=== PATIENT | male | born 1980 | race Caucasian/White ===

== ENCOUNTER 2022-02-23 15:27 | Emergency (ER) | payer BC, SELFPAY ==
[2022-02-23 16:06] VITALS: BP 148/114; PULSE 77; RESP 16; TEMP 36.6; O2SAT 100; BMI 35.4
--- NOTE | 2022-02-23 16:10 | XRR_ITS ---
PROCEDURE INFORMATION: Exam: XR Right Shoulder Exam date and time: 02/23/2022 4:14 PM Age: 41 years old Clinical indication: Injury or trauma; Blunt trauma (contusions or hematomas); Injury details: History--fell over a trailer hitch, caught fall with right shoulder and elbow; Additional info: Trauma to right shoulder possible dislocation TECHNIQUE: Imaging protocol: Radiologic exam of the Right shoulder. Views: 2 or more views. COMPARISON: No relevant prior studies available. FINDINGS: Bones/joints: There is a curvilinear os ossific fragment along the inferior glenoid consistent with osseous Bankart injury measuring 1.4 cm. The rest of the osseous structures are intact. No dislocation. Soft tissues: Normal. XR/XR shoulder RT min 2V* [id number] IMPRESSION: Sequela of prior dislocation injury with osseous Bankart fragment measuring 1.4 cm along the inferior glenoid.
--- NOTE | 2022-02-23 16:11 | XRR_ITS ---
PROCEDURE INFORMATION: Exam: XR Right Elbow Exam date and time: 02/23/2022 4:18 PM Age: 41 years old Clinical indication: Injury or trauma; Blunt trauma (contusions or hematomas); Injury details: History--fell over a trailer hitch, caught fall with right shoulder and elbow; Additional info: Truma to right elbow. TECHNIQUE: Imaging protocol: Radiologic exam of the Right elbow. Views: 3 or more views. COMPARISON: CR XR shoulder RT min 2V* [id number] 02/23/2022 4:14 PM FINDINGS: Bones/joints: Osseous structures are intact. Negative for fracture. Moderate sized enthesophyte noted at the triceps insertion. Soft tissues: Normal. XR/XR elbow RT min 3V* [id number] IMPRESSION: No acute findings.
[2022-02-23 16:36] VITALS: BP 168/112; PULSE 79; RESP 19; O2SAT 98
--- NOTE | 2022-02-23 17:15 | W.ED.EXTPRO ---
Documented by User: OMI Ferrer 02/23/22 17:43 HPI - Extremity Problem General: Chief complaint: Extremity Injury, Upper Stated complaint: right arm pain Time Seen by Provider: 02/23/22 16:45 History of Present Illness: Patient is a 41-year-old male who comes to the ED with right shoulder injury. Injury occurred just prior to arrival. Patient says he tripped and fell outside and landed on his right shoulder. After fall patient felt pain in his right shoulder and feels like his shoulder was dislocated. He then got in the vehicle and his mother drove him to the emergency department. While in route they hit a bump causing patient's right shoulder to pop back into place. His pain was better by the time he arrived here to the ED. Associated symptoms: Deny chest pain, fever(s) or rash Review of Systems Const: Denies: fever(s), chills or fatigue Eyes: Denies: change in vision or eye discomfort ENMT: Denies: throat pain, odynophagia, nasal discharge or nasal congestion Card: Denies: chest pain, palpitations, edema, swelling of feet/ankles, dyspnea on exertion or orthopnea Resp: Denies: dyspnea, productive cough or non-productive cough GI: Denies: abdominal pain, nausea, vomiting, diarrhea, constipation or hematochezia : Denies: flank pain, difficulty urinating, dysuria or hematuria Musc: Reports: extremity pain (right shoulder); Denies: neck pain, back pain or extremity swelling Skin/Breast: Denies: rash or new lesions Neuro: Denies: headache(s), numbness in extremities or weakness in extremities [facility] ED PFSH: Medical History No pertinent family history Surgical History No pertinent past surgical history Physical Exam Const: COMMON NORMALS: patient oriented x3, healthy appearing and alert GENERAL APPEARANCE: cooperative HENMT: COMMON NORMALS: normocephalic HEAD & SCALP: normocephalic MOUTH: Normal oral and palatal mucosa present THROAT: posterior oropharynx normal and uvula midline Neck/C-Spine: COMMON NORMALS: supple GENERAL: Yes normal visual inspection Resp: COMMON NORMALS: normal respiratory effort, No retractions, No use of accessory muscles and clear to auscultation bilaterally AUSCULTATION: clear to auscultation bilaterally Cardio: COMMON NORMALS: regular rate, regular rhythm, S1 normal heart sound present, S2 normal heart sound present, No gallops present (Cardio), No clicks present (Cardio), No murmurs present (Cardio) and Peripheral pulses 2+ throughout RATE: regular rate RHYTHM: regular rhythm HEART SOUNDS: S1 normal heart sound present and S2 normal heart sound present PERIPHERAL PULSES: Peripheral pulses 2+ throughout GI: COMMON NORMALS: Normal to inspection, nondistended, normoactive bowel sounds present, Soft to palpation, non-tender and no masses PALPATION: Yes Soft to palpation : COMMON NORMALS: Yes no CVA tenderness BLADDER/KIDNEY EXAM: Yes no CVA tenderness Back/Pelvis: COMMON NORMALS: no CVA tenderness Extremity: NARRATIVE EXTREMITY EXAM: Right shoulder?no visible deformity noted. Tenderness palpation over AC joint region. Limited range of motion due to pain. neurovascular intact. Neuro: COMMON NORMALS: patient oriented x3 SENSORIUM/ORIENTATION: Yes alert GAIT: Yes Normal gait present Skin: GENERAL SKIN EXAM: dry skin Course Vital Signs: Vital signs: Vital Signs Temperature 97.9 F 02/23/22 16:06 Pulse Rate 79 02/23/22 16:36 Respiratory Rate 19 H 02/23/22 16:36 Blood Pressure 168/112 02/23/22 16:36 Pulse Oximetry 98 02/23/22 16:36 Oxygen Delivery Me thod 02/23/22 16:36 MDM - Extremity (Nontraumatic) Medical Decision Making Patient is a 41-year-old male comes to the ED with injury to right shoulder. X-ray right shoulder shows a fragment of the inferior glenoid which is consistent with a dislocation injury. Patient was put in a shoulder immobilizer and I placed an order with case management for patient to be referred to Ortho for follow-up and further management of care. He was diagnosed with a right shoulder fracture and was discharged home with a prescription for ibuprofen 800 mg and hydrocodone for pain. Return to ED precautions given. Patient understood and agreed with plan. Lab Data Radiology Impressions Shoulder X-Ray 02/23/22 16:10 IMPRESSION: Sequela of prior dislocation injury with osseous Bankart fragment measuring 1.4 cm along the inferior glenoid. Elbow X-Ray 02/23/22 16:11 IMPRESSION: No acute findings. Discharge Plan Discharge Patient Disposition: Home Clinical Impression: Closed fracture of shoulder Qualifiers: Encounter type: initial encounter Laterality: right Qualified Code(s): S42.91XA - Fracture of right shoulder girdle, part unspecified, initial encounter for closed fracture Condition: Stable Prescriptions: New ibuprofen 800 mg tablet 800 mg PO Q8H PRN (Reason: pain) Qty: 30 0RF Discharge Orders: Discharge ED (Routine); Ordered 02/23/22 Ordered By: Jose De Jesus Capps Discharge Diet: Regular Discharge Activity: Limit activity as instructed Patient Instructions: Opioid Safety Activity Restrictions/Additional Instructions: Follow-up with medical provider as directed. Case management should contact you in the next several days set up an appointment with orthopedic doctor for further evaluation of shoulder fracture. Take medications as prescribed. Keep shoulder in immobilizer until seen by orthopedic doctor. Return to the ER or your medical provider if condition worsens. Please read and understand discharge instructions. Thank you for choosing [facility] for your healthcare needs today. Please realize this is an emergency room and that we are providing you with a medical screening exam and this may not be complete and all inclusive of all the testing and or work up that you may need to determine your ailment or severity of your illness. It is very important that you follow up as instructed or that you return to the Emergency Department should you have concerns or if your condition changes or worsens in any way. Coding Level of Care Code ED Classroom Paraprofessional for Chg Fwd Exam Comprehensive Documented by User: Gal Chanel DO 02/24/22 09:31 HPI - Extremity Problem General: Chief complaint: Extremity Injury, Upper Stated complaint: right arm pain Time Seen by Provider: 02/23/22 16:45 PFSH ED PFSH: Medical History No pertinent family history Surgical History No pertinent past surgical history Course Vital Signs: Vital signs: Vital Signs Temperature 97.9 F 02/23/22 16:06 Pulse Rate 79 02/23/22 16:36 Respiratory Rate 19 H 02/23/22 16:36 Blood Pressure 168/112 02/23/22 16:36 Pulse Oximetry 98 02/23/22 16:36 Oxygen Delivery Me thod 02/23/22 16:36 MDM - Extremity (Nontraumatic) Medical Decision Making Patient is a 41-year-old male comes to the ED with injury to right shoulder. X-ray right shoulder shows a fragment of the inferior glenoid which is consistent with a dislocation injury. Patient was put in a shoulder immobilizer and I placed an order with case management for patient to be referred to Ortho for follow-up and further management of care. He was diagnosed with a right shoulder fracture and was discharged home with a prescription for ibuprofen 800 mg and hydrocodone for pain. Return to ED precautions given. Patient understood and agreed with plan. Chart reviewed and patient discussed with midlevel. Agree with assessment and plan. Lab Data Radiology Impressions Shoulder X-Ray 02/23/22 16:10 IMPRESSION: Sequela of prior dislocation injury with osseous Bankart fragment measuring 1.4 cm along the inferior glenoid. Elbow X-Ray 02/23/22 16:11 IMPRESSION: No acute findings. Discharge Plan Discharge Patient Disposition: Home Clinical Impression: Closed fracture of shoulder Qualifiers: Encounter type: initial encounter Laterality: right Qualified Code(s): S42.91XA - Fracture of right shoulder girdle, part unspecified, initial encounter for closed fracture Condition: Stable Prescriptions: New ibuprofen 800 mg tablet 800 mg PO Q8H PRN (Reason: pain) Qty: 30 0RF Discharge Orders: Discharge ED (Routine); Ordered 02/23/22 Ordered By: Jose De Jesus Capps Discharge Diet: Regular Discharge Activity: Limit activity as instructed Patient Instructions: Opioid Safety Activity Restrictions/Additional Instructions: Follow-up with medical provider as directed. Case management should contact you in the next several days set up an appointment with orthopedic doctor for further evaluation of shoulder fracture. Take medications as prescribed. Keep shoulder in immobilizer until seen by orthopedic doctor. Return to the ER or your medical provider if condition worsens. Please read and understand discharge instructions. Thank you for choosing [facility] for your healthcare needs today. Please realize this is an emergency room and that we are providing you with a medical screening exam and this may not be complete and all inclusive of all the testing and or work up that you may need to determine your ailment or severity of your illness. It is very important that you follow up as instructed or that you return to the Emergency Department should you have concerns or if your condition changes or worsens in any way. Coding Level of Care Code ED Classroom Paraprofessional for Griselda Fwd Exam Comprehensive
--- NOTE | 2022-02-24 20:17 | DCPLANNER ---
Addendum entered by Chantel Mercedes 03/05/22 11:10: Patient had follow up appointment scheduled for 02.26.[address] Garcia at ortho - patient did attend appointment. Original Note: route sales manager had message to schedule a follow up appointment for patient with ortho. route sales manager sent patients information to the front office staff at ortho. Patients information will be printed and reviewed. Clinic will call patient with appointment information.
== END 2022-02-23 17:46 | disposition home or self-care (01) ==
PROVIDERS: Emergency Provider Physician Assistant
DX: S42.141A Displaced fracture of glenoid cavity of scapula, right shoulder, initial encounter for closed fracture (principal); W01.0XXA Fall on same level from slipping, tripping and stumbling without subsequent striking against object, initial encounter
CPT/HCPCS: 29240; 73030; 73080; 99283

== ENCOUNTER 2022-03-09 06:00 | Outpatient (RCR) | payer BC, SELFPAY | END 2022-03-24 23:59 | disposition home or self-care (01) | LOC: TPT 06:00 | PROVIDERS: Referring Provider Orthopaedic Surgery; Visit Provider Orthopaedic Surgery | DX: S43.004D Unspecified dislocation of right shoulder joint, subsequent encounter (principal); X58.XXXD Exposure to other specified factors, subsequent encounter | CPT/HCPCS: 97110; 97140; 97161 ==